=== PATIENT | male | born 1975 | race Hispanic/Latino ===

== ENCOUNTER 2017-09-22 11:07 | Emergency (ER) | payer OTHER ==
[~2017-09-22 11:07] MED LIST: ACET1TAB12 PO; SULF1TAB42 PO
[2017-09-22] MEDS ORDERED: IPRATROPIUM/ALBUTEROL SULFATE 3 ML SOLUTION IH ONE (11:51)
[2017-09-22 12:08] LABS: BASOPHILS % (AUTO) 0.2 % (0.0-5.0); EOSINOPHILS % (AUTO) 0.7 % (0.0-8.0); MEAN CORPUSCULAR HEMOGLOBIN 28.5 pg (27.0-33.0); MEAN CORPUSCULAR HGB CONC 33.5 g/dL (32.0-36.0); MEAN CORPUSCULAR VOLUME 85.1 fL (79-99); MONOCYTES % (AUTO) 5.2 % (3.0-13.0); NEUTROPHILS % (AUTO) 84.3 % (40.0-77.0); NUCLEATED RED BLOOD CELLS 0.1 % (0.0-0.19); PLATELET COUNT (AUTO) 346 K/uL (130-400); RED BLOOD CELL COUNT(AUTO) 4.34 MIL/uL (4.50-6.20); RED CELL DISTRIBUTION WIDTH 13.3 % (11.0-15.5); WHITE BLOOD COUNT (AUTO) 6.2 K/uL (4.8-10.8)
[2017-09-22 12:16] LABS: LYMPHOCYTES % (AUTO) 9.6 % (21.0-51.0)
[2017-09-22 12:22] LABS: POTASSIUM 3.9 mmol/L (3.5-5.1)
[2017-09-22 12:25] LABS: ALBUMIN 2.3 g/dL (3.5-5.0); BILIRUBIN,TOTAL 0.3 mg/dL (0.2-1.0); TOTAL PROTEIN, SERUM 8.4 g/dL (6.0-8.3)
[2017-09-22 14:08] LABS: AMPHET/METH SCREEN,URINE NEGATIVE (NEGATIVE); BARBITURATE SCREEN, URINE NEGATIVE (NEGATIVE); BENZODIAZEPINES SCREEN,URINE NEGATIVE (NEGATIVE); CANNABINOID SCREEN,URINE NEGATIVE (NEGATIVE); COCAINE SCREEN,URINE POSITIVE (NEGATIVE); OPIATE SCREEN,URINE NEGATIVE (NEGATIVE); PHENCYCLIDINE SCREEN,URINE NEGATIVE (NEGATIVE)
== END 2017-09-22 14:50 | disposition home or self-care (01) ==
LOC: EDH 11:07
DX: J20.9 Acute bronchitis, unspecified (principal); M79.1 Myalgia; Z87.891 Personal history of nicotine dependence
CPT/HCPCS: 36415; 71046; 80053; 80305; 85025; 93005; 94640

== ENCOUNTER 2017-11-08 18:15 | Inpatient (IN) | payer MEDICAID, OTHER ==
[~2017-11-08] VITALS: Ht 172.7 cm; Wt 67.0 kg
[2017-11-08 19:30] LABS: BASOPHILS % (AUTO) 0.5 % (0.0-5.0); EOSINOPHILS % (AUTO) 0.2 % (0.0-8.0); LYMPHOCYTES % (AUTO) 7.2 % (21.0-51.0); MEAN CORPUSCULAR HEMOGLOBIN 30.2 pg (27.0-33.0); MEAN CORPUSCULAR HGB CONC 34.5 g/dL (32.0-36.0); MEAN CORPUSCULAR VOLUME 87.5 fL (79-99); MONOCYTES % (AUTO) 10.2 % (3.0-13.0); NEUTROPHILS % (AUTO) 81.9 % (40.0-77.0); PLATELET COUNT (AUTO) 384 K/uL (130-400); RED BLOOD CELL COUNT(AUTO) 3.89 MIL/uL (4.50-6.20); RED CELL DISTRIBUTION WIDTH 19.8 % (11.0-15.5); WHITE BLOOD COUNT (AUTO) 12.7 K/uL (4.8-10.8)
[2017-11-08 19:40] LABS: CREATININE 0.9 mg/dL (0.5-1.5); POTASSIUM 3.7 mmol/L (3.5-5.1)
[2017-11-08] MEDS ORDERED: SODIUM CHLORIDE 0.9% 1000ML 1,000 ML IV ONE (19:47)
[2017-11-08] MEDS ORDERED: CEFTRIAXONE SODIUM 1 GM ONE (19:48)
[2017-11-08 19:53] LABS: ALBUMIN 2.4 g/dL (3.5-5.0); BILIRUBIN,TOTAL 0.3 mg/dL (0.2-1.0); TOTAL PROTEIN, SERUM 8.5 g/dL (6.0-8.3)
[2017-11-08] MEDS ORDERED: DOXYCYCLINE 100MG+NS 250ML 250 ML IV ONE (22:47)
[2017-11-08] MEDS ORDERED: ONDANSETRON HCL 4 MG/2 ML VIAL IVP PRN (23:45)
[2017-11-08] MEDS ORDERED: VANCOMYCIN PROTOCOL PER PHARMACY IV SCH (23:45)
[2017-11-08] MEDS ORDERED: ACETAMINOPHEN 325 MG TAB PO PRN (23:45)
[2017-11-09] VITALS (8 sets, daily range): BP systolic 112–135; BP diastolic 56–89
[2017-11-09] MEDS ORDERED: TRAMADOL /APAP 37.5MG/325MG TAB ONE (03:54)
[2017-11-09] MEDS: VANCOMYCIN 1GM+NS 250ML 250 ML IV SCH ×3 (04:00→23:52)
[2017-11-09 04:03] LABS: HEMATOCRIT 34.8 % (42-54); MEAN CORPUSCULAR HEMOGLOBIN 30.9 pg (27.0-33.0); MEAN CORPUSCULAR HGB CONC 34.7 g/dL (32.0-36.0); NUCLEATED RED BLOOD CELLS 0.1 % (0.0-0.19); PLATELET COUNT (AUTO) 388 K/uL (130-400); RED BLOOD CELL COUNT(AUTO) 3.91 MIL/uL (4.50-6.20); RED CELL DISTRIBUTION WIDTH 19.6 % (11.0-15.5); WHITE BLOOD COUNT (AUTO) 9.3 K/uL (4.8-10.8)
[2017-11-09 04:12] LABS: MAGNESIUM 1.9 mg/dL (1.80-2.40); PHOSPHORUS 3.9 mg/dL (2.5-4.9); POTASSIUM 3.8 mmol/L (3.5-5.1)
[2017-11-09] MEDS ORDERED: FLUC200T8 PO (04:16)
[2017-11-09] MEDS ORDERED: SULF10VI2 IV (04:16)
[2017-11-09] MEDS ORDERED: SACC250C9 PO (04:16)
[2017-11-09] MEDS ORDERED: DOLU50TA PO (04:16)
[2017-11-09] MEDS ORDERED: EMTR1TAB12 PO (04:16)
[2017-11-09] MEDS ORDERED: AZIT600T5 PO (04:16)
[2017-11-09] MEDS ORDERED: PNV1TABL17 PO (04:16)
[2017-11-09] MEDS ORDERED: VALA10002 PO (04:16)
[2017-11-09] MEDS ORDERED: MEGE40L PO (04:16)
[2017-11-09] MEDS: SODIUM CHLORIDE 0.9% 1000ML 1,000 ML IV SCH ×3 (04:22→23:57)
[2017-11-09] MEDS ORDERED: VANCOMYCIN PROTOCOL PER PHARMACY IV SCH (04:45)
[2017-11-09 05:18] LABS: BAND NEUTROPHILS % (MANUAL) 17 % (0-2); EOSINOPHILS % (MANUAL) 1 % (1-6); LYMPHOCYTES % (MANUAL) 1 % (22-44); MAN.DIFF COMMENT-IMPRESSION MANUAL DIFFERENTIAL; MONOCYTES % (MANUAL) 9 % (2-9); REACTIVE LYMPHOCYTES 2 % (0-0); SEGMENTED NEUTROPHILS % 70 % (40-70)
[2017-11-09] MEDS ORDERED: DOXYCYCLINE 100MG+NS 250ML 250 ML IV SCH (09:00)
[2017-11-09] MEDS: TRAMADOL /APAP 37.5MG/325MG TAB PO PRN ×3 (10:19→23:57)
[2017-11-09] MEDS: PANTOPRAZOLE SODIUM 40 MG TABLET.DR PO SCH (10:22)
[2017-11-09] MEDS: ENOXAPARIN SODIUM 40 MG/0.4 ML SYRINGE SQ SCH (10:22)
[2017-11-09] MEDS ORDERED: CEFTRIAXONE SODIUM 1 GM IVP SCH (11:30)
[2017-11-09] MEDS ORDERED: NAPROXEN 250 MG TAB PO PRN (11:30)
[2017-11-09] MEDS ORDERED: CEFTRIAXONE 1GM/D5W 50ML 50 ML IV SCH (11:30)
[2017-11-09] MEDS: METHYLPREDNISOLONE SOD SUCC 125MG/2ML VIAL IVP SCH (15:06)
[2017-11-10 03:35] VITALS: BP 108/68
[2017-11-10 03:51] LABS: HEMATOCRIT 34.1 % (42-54); MEAN CORPUSCULAR HEMOGLOBIN 30.6 pg (27.0-33.0); MEAN CORPUSCULAR HGB CONC 34.2 g/dL (32.0-36.0); MEAN CORPUSCULAR VOLUME 89.4 fL (79-99); NUCLEATED RED BLOOD CELLS 0.1 % (0.0-0.19); PLATELET COUNT (AUTO) 324 K/uL (130-400); RED BLOOD CELL COUNT(AUTO) 3.82 MIL/uL (4.50-6.20); RED CELL DISTRIBUTION WIDTH 18.7 % (11.0-15.5); WHITE BLOOD COUNT (AUTO) 6.2 K/uL (4.8-10.8)
[2017-11-10 04:01] LABS: MAGNESIUM 1.9 mg/dL (1.80-2.40)
[2017-11-10] MEDS: TRAMADOL /APAP 37.5MG/325MG TAB PO PRN ×3 (05:21→15:36)
[2017-11-10] MEDS: SODIUM CHLORIDE 0.9% 1000ML 1,000 ML IV SCH ×2 (06:39→16:39)
[2017-11-10 08:00] VITALS: BP 133/63
[2017-11-10] MEDS: PANTOPRAZOLE SODIUM 40 MG TABLET.DR PO SCH (10:44)
[2017-11-10] MEDS: VANCOMYCIN 1GM+NS 250ML 250 ML IV SCH (10:44)
[2017-11-10] MEDS: ENOXAPARIN SODIUM 40 MG/0.4 ML SYRINGE SQ SCH (10:44)
[2017-11-10 11:36] VITALS: BP 117/69
[2017-11-10] MEDS: METHYLPREDNISOLONE SOD SUCC 125MG/2ML VIAL IVP SCH (15:35)
[2017-11-10 16:00] VITALS: BP 124/67
[2017-11-10 19:00] VITALS: BP 128/75
[2017-11-10] MEDS ORDERED: HONEY 1 APPL/ML TUBE TP SCH (19:30)
[2017-11-10 23:00] VITALS: BP 129/75
[2017-11-11] MEDS: SODIUM CHLORIDE 0.9% 1000ML 1,000 ML IV SCH (00:05)
[2017-11-11] MEDS: VANCOMYCIN 1GM+NS 250ML 250 ML IV SCH ×2 (00:05→13:16)
[2017-11-11] MEDS: TRAMADOL /APAP 37.5MG/325MG TAB PO PRN ×2 (00:56→10:07)
[2017-11-11 03:00] VITALS: BP 126/71
[2017-11-11] MEDS ORDERED: METHYLPREDNISOLONE 4 MG TABLET ONE ×2 (05:16→05:26)
[2017-11-11] MEDS ORDERED: METHYLPREDNISOLONE 4 MG TABLET PO SCH (07:30)
[2017-11-11 08:00] VITALS: BP 135/81
[2017-11-11] MEDS ORDERED: MEGESTROL 400 MG/10 ML UDCUP PO SCH (09:00)
[2017-11-11] MEDS ORDERED: TIVICAY 50 MG PO SCH (09:00)
[2017-11-11] MEDS ORDERED: ALLOPURINOL 100 MG TABLET PO SCH (09:00)
[2017-11-11] MEDS ORDERED: VALACYCLOVIR HCL 500 MG TABLET PO SCH (09:00)
[2017-11-11] MEDS ORDERED: DESCOVY PO SCH (09:00)
[2017-11-11] MEDS: PANTOPRAZOLE SODIUM 40 MG TABLET.DR PO SCH (09:49)
[2017-11-11] MEDS: ENOXAPARIN SODIUM 40 MG/0.4 ML SYRINGE SQ SCH (09:51)
[2017-11-11 12:00] VITALS: BP 135/90
[2017-11-11] MEDS ORDERED: CLIN300C9 PO (13:36)
[2017-11-11] MEDS ORDERED: METH4TAB PO (15:43)
[2017-11-11] MEDS ORDERED: ALLO100T PO (15:43)
[2017-11-12] MEDS ORDERED: METHYLPREDNISOLONE 4 MG TABLET PO SCH (07:30)
[2017-11-13] MEDS ORDERED: METHYLPREDNISOLONE 4 MG TABLET PO SCH (07:30)
[2017-11-14] MEDS ORDERED: METHYLPREDNISOLONE 4 MG TABLET PO SCH (07:30)
[2017-11-15] MEDS ORDERED: METHYLPREDNISOLONE 4 MG TABLET PO SCH (07:30)
[2017-11-16] MEDS ORDERED: METHYLPREDNISOLONE 4 MG TABLET PO SCH (07:30)
== END 2017-11-11 15:50 | disposition home or self-care (01) | DRG 602 ==
LOC: EDH 18:15 → EDHIP 18:16 → 3BH 23:33
PROVIDERS: ADMIT Family Medicine; ATTEND Family Medicine
DX: L03.116 Cellulitis of left lower limb (principal); B20 Human immunodeficiency virus [HIV] disease; M10.9 Gout, unspecified; Z82.49 Family history of ischemic heart disease and other diseases of the circulatory system
CPT/HCPCS: 36415; 73070; 73562; 80048; 80053; 80202; 83605; 83735; 84100; 84550; 85025; 85027; 87040; 87070; J0696; J1650; J2930; J3370; J3490; J7030; J7509